=== PATIENT | male | born 1985 ===

== ENCOUNTER 2018-08-05 05:15 | Inpatient (IN) | payer OTHER ==
[2018-08-05] VITALS (8 sets, daily range): BP systolic 112–136; BP diastolic 69–89
[~2018-08-05] VITALS: Ht 180.3 cm; Wt 113.4 kg
[~2018-08-05 05:15] MED LIST: NKM
[2018-08-05] MEDS ORDERED: Dexamethasone 20mg/5ml ONE (05:47)
[2018-08-05] MEDS ORDERED: LORazepam 1mg tab ORAL PRN (06:00)
[2018-08-05] MEDS ORDERED: HYDROmorphone 1mg/ml Carpuject SUBQ PRN (06:00)
[2018-08-05] MEDS ORDERED: HYDROcodone/Acetamin 10/325 tab ORAL PRN (06:00)
[2018-08-05] MEDS ORDERED: Chloraseptic Spray 20mL Bottle ORAL PRN (06:00)
[2018-08-05] MEDS ORDERED: Hydromorphone 0.5mg/0.5ml inj IVP PRN ×2 (06:00→06:15)
[2018-08-05] MEDS ORDERED: LR 1000ml 1,000 ML IVLG SCH (06:11)
[2018-08-05] MEDS ORDERED: Meperidine 50mg/ml Inj(FOR RIGORS ONLY) IVP PRN (06:15)
[2018-08-05] MEDS ORDERED: fentaNYL 100 mcg/2 mL IV PRN (06:15)
[2018-08-05] MEDS ORDERED: Ketorolac 30mg Inj IV PRN ×2 (06:15)
[2018-08-05] MEDS ORDERED: Midazolam 2mg/2ml Inj IVP PRN (06:15)
[2018-08-05] MEDS ORDERED: HYDROcodone/Acetamin 5/325 tab ORAL PRN (06:15)
[2018-08-05] MEDS ORDERED: Labetalol 5mg/ml 20ml vial IV PRN (06:15)
[2018-08-05] MEDS ORDERED: Atropine Sulfate 0.4mg/ml inj IVP PRN (06:15)
[2018-08-05] MEDS ORDERED: Acetaminophen (Non formulary) 100 ML IV ONE (06:15)
[2018-08-05] MEDS ORDERED: HYDROcodone/Acetamin 7.5/325 tab ORAL PRN (06:15)
[2018-08-05] MEDS ORDERED: oxyCODONE HCL/Acetaminophen 5/325mg ORAL PRN (06:15)
[2018-08-05] MEDS ORDERED: LORazepam Inj 2mg/ml 1ml IV PRN (06:15)
[2018-08-05] MEDS ORDERED: DiphenhydrAMINE 50mg/ml Inj IVP PRN (06:15)
[2018-08-05] MEDS ORDERED: Zemuron 50mg/5ml Inj IV ONE (06:27)
[2018-08-05] MEDS ORDERED: Gelfoam Size TOPIC ONE (06:34)
[2018-08-05] MEDS ORDERED: Thrombin 5000 units TOPIC ONE (06:34)
[2018-08-05] MEDS ORDERED: Bacitracin 50000 Units Vial ONE (06:34)
[2018-08-05] MEDS ORDERED: Lidocaine 1% Plain 30 ml INJ ONE ×2 (06:55→08:35)
[2018-08-05] MEDS ORDERED: Sodium Chloride 10ml vial INJ ONE (06:55)
[2018-08-05] MEDS ORDERED: Dexamethasone 4mg/ml vial ONE (06:55)
[2018-08-05] MEDS ORDERED: Lidocaine 1% MPF 10mg/ml 5ml ONE (06:55)
--- NOTE | 2018-08-05 06:56 | Pre-Procedure Note/Attestation ---
Pre-Procedure Note/Attestation Complete Prior to Procedure Planned Procedure: not applicable Procedure Narrative: C5-C6, C6-C7 ACDF anterior plate, possible ADR Indications for Procedure Pre-Operative Diagnosis: Post trauma HNP radiculopathy Attestation I attest that I discussed the nature of the procedure; its benefits; risks and complications; and alternatives (and the risks and benefits of such alternatives ), prior to the procedure, with the patient (or the patient's legal insurance claims representative). I attest that, if there was a reasonable possibility of needing a blood transfusion, the patient (or the patient's legal insurance claims representative) was given the [facility] standardized written summary, pursuant to the [place] Blood Safety Act ([place] Health and Safety Code # 1645, as amended). I attest that I re-evaluated the patient just prior to the surgery and that there has been no change in the patient's H&P, except as documented below: Fuentes Mercedes MD Aug 05, 2018 06:56
[2018-08-05] MEDS ORDERED: Propofol 1,000mg/ 100ml btl IV ONE (07:00)
[2018-08-05] MEDS ORDERED: Dexamethasone 20mg/5ml IVP ONE (07:00)
[2018-08-05] MEDS ORDERED: ceFAZolin sod 1 GM in NS 55 ML IVPB ONE (07:00)
[2018-08-05] MEDS ORDERED: LR 1000ml ONE (07:00)
[2018-08-05] MEDS ORDERED: Sterile Water Irrig 1000ml IRRIG ONE (07:00)
[2018-08-05] MEDS ORDERED: NS Irrig 1000ml ONE (07:00)
[2018-08-05] MEDS ORDERED: Labetalol 5mg/ml 20ml vial IV ONE (07:00)
--- NOTE | 2018-08-05 07:09 | Anethesia Preoperative Eval ---
Anesthesia Pre-op PMH/ROS General Date of Evaluation: Aug 05, 2018 Time of Evaluation: 07:01 Anesthesiologist: Sharon ASA Score: ASA 2 Mallampati Score Class I : Soft palate, uvula, fauces, pillars visible Class II: Soft palate, uvula, fauces visible Class III: Soft palate, base of uvula visible Class IV: Only hard plate visible Mallampati Classification: Class II Surgeon: Mago Diagnosis: Neck Pain Surgical Procedure: ACDF C5-6, C6-7 Anesthesia History: none Family History: no anesthesia problems Allergies: Coded Allergies: No Known Allergies (Unverified , 08/04/18) Medications: see eMAR Patient NPO?: Yes NPO Date: Aug 04, 2018 NPO Time: 1800 Past Medical History Other: obesity - BMI 37 Anesthesia Pre-op Phys. Exam Physician Exam Last Vital Signs Date Time Temp Pulse Resp B/P (MAP) Pulse Ox O2 Delivery O2 Flow Rate FiO2 08/05/18 05:52 Room Air 08/05/18 05:50 97.2 65 18 130/69 (89) 99 Constitutional: NAD Neurologic: CN 2-12 intact Cardiovascular: RRR Respiratory: CTA Gastrointestinal: S/NT/ND Airway Exam Mallampati Score: Class II MO: full ROM: limited Teeth: intact Anesthesia Pre-op A/P Risk Assessment & Plan Assessment: ASA 2 Plan: GA, SED, GlideScope Go Status Change Before Surgery: No Pre-Antibiotics Dru Grams Ancef IV Given Within 1 Hr of Incision: Yes Time Given: 07:16 Baljinder Herrera MD Aug 05, 2018 07:09
[2018-08-05] MEDS ORDERED: fentaNYL 100 mcg/2 mL IV ONE ×2 (07:55→09:05)
--- NOTE | 2018-08-05 08:02 | Immediate Post-Op Evaluation ---
Immediate Post-Op Evalulation Immediate Post-Op Evalulation Procedure: ACDF C5-6, C6-7 Date of Evaluation: Aug 05, 2018 Time of Evaluation: 10:34 IV Fluids: 1000 LR Blood Products: 0 Estimated Blood Loss: 50 Urinary Output: 0 Blood Pressure Systolic: 121 Blood Pressure Diastolic: 78 Pulse Rate: 80 Respiratory Rate: 16 O2 Sat by Pulse Oximetry: 100 Temperature (Fahrenheit): 97.1 Pain Score (1-10): 2 Nausea: No Vomiting: No Complications 0 Patient Status: awake, reacts, patent, extubated, none Hydration Status: adequate Dru Grams Ancef IV Given Within 1 Hr of Incision: Yes Time Given: 07:16 Baljinder Herrera MD Aug 05, 2018 08:02
--- NOTE | 2018-08-05 08:04 | 48 Hour Post Anesthesia Eval ---
Post Anesthesia Evaluation Procedure: ACDF C5-6, C6-7 Date of Evaluation: Aug 05, 2018 Time of Evaluation: 13:34 Blood Pressure Systolic: 123 0: 77 Pulse Rate: 72 Respiratory Rate: 18 Temperature (Fahrenheit): 98.2 O2 Sat by Pulse Oximetry: 99 Airway: patent Nausea: No Vomiting: No Pain Intensity: 2 Cardiopulmonary Status: Stable Follow-up Care/Observations: 0 Post-Anesthesia Complications: 0 Follow-up care needed: ready to discharge Baljinder Herrera MD Aug 05, 2018 08:04
[2018-08-05] MEDS ORDERED: Naloxone 0.4mg/ml Inj ONE (09:29)
[2018-08-05] MEDS ORDERED: Neostigmine 1mg/ml 10ml Inj ONE (09:34)
[2018-08-05] MEDS ORDERED: Glycopyrrolate 0.2mg/ml 1ml Vial ONE (09:34)
[2018-08-05] MEDS ORDERED: D5 1/2NS 1,000 ML IV SCH (10:32)
--- NOTE | 2018-08-05 10:32 | Brief Operative Note ---
Immediate Post Operative Note Operative Note Pre-op Diagnosis: Post trauma HNP radiculopathy Procedure: ACDF C5-C6, C6, C7 Plate C5-C7 Microscope Xray SSEP Body Habitus Post-op Diagnosis: same as pre-op Findings: consistent w/pre-op dx studies Surgeon: Mago SULLIVAN Additional Surgeons: Shelby SULLIVAN Anesthesiologist: Sharon SULLIVAN Anesthesia: general Specimen: yes Complications: none Condition: stable Fluids: anesthesia Estimated Blood Loss: volume Drains: none Implant(s) used?: Yes Fuentes Mercedes MD Aug 05, 2018 10:32
[2018-08-05] MEDS ORDERED: Naloxone 0.4mg/ml Inj IVP PRN (10:45)
--- NOTE | 2018-08-05 11:55 | NUR ---
NURSE NOTES: Received patient from Xuan RN, patient stable condition with out no distress, denies pain, neuro check stable, surgical site with out bleeding intact, with ice pack, family at bedside will continue to monitor.
[2018-08-05] MEDS ORDERED: ceFAZolin sod 1 GM in D5W 55 ML IV SCH (15:00)
--- NOTE | 2018-08-05 16:00 | NUR ---
NURSE NOTES: Patient able to void large pale yellow urine, denies pain, able to ambulated in the unit with out no difficulties. neuro check stable will continue to monitor.
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
--- NOTE | 2018-08-05 17:30 | Operative Note - Dictated ---
DATE OF OPERATION: 08/05/2018 SURGEON: Fuentes Mercedes, , PhD, M.D. ADDITIONAL SURGEON: Raymundo Ryan MD. ANESTHESIOLOGIST: Baljinder Herrera M.D. ANESTHESIA: General with intubation. 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 OPERATIVE PROCEDURE: 1. Anterior cervical diskectomy with fusion C5-C6, C6-C7. 2. Placement of bioactive material C5-C6, C6-C7. 3. Placement of titanium interbody grafts C5-C6, C6-C7. 4. Anterior internal plate fixation . The patient's body habitus greater than 95th percentile for height. 5. SSEP monitoring. 6. High-powered microscopic dissection. 7. Intraoperative fluoroscopy interpreted by surgeons. COMPLICATIONS: None. POSTOP CONDITION: Good/stable. ESTIMATED BLOOD LOSS: Less than 50 mL. SPECIMEN: Disc fragments to pathology. DESCRIPTION OF PROCEDURE: The patient was brought to the operating room and in the supine position, general anesthesia with intubation was induced. IV antibiotics, IV Decadron were administered 30 minutes prior to incision time. After appropriate positioning in the supine position, a spinal needle was taped to the right lateral aspect of the neck (within the sheath of the needle without penetration of the skin) and a cross-table image was obtained interpreted by surgeons demonstrating the correct level for incision placement. Level was marked on the left side-contralateral side from the needle of the neck. Needle marker was removed. Anterior cervical spine was sterilely prepped and draped free in usual sterile fashion. A longitudinal incision left was utilized due to the patient's body habitus, diameter of the neck and shortness of his neck. Sharp dissection was carried appropriately medial to the sternocleidomastoid muscle through dermis and epidermis. Electrocautery dissection was carried through the subcutaneous tissue to the level of the platysmas muscle that was identified, isolated, and transected in line with the incision. Venous bleeding in the interval was coagulated with bipolar electrocauterization and surgical clip utilization. Dissection was carried medial to the carotid sheath and left sternocleidomastoid muscle bluntly through the deep cervical and pretracheal fascia to the midline between the right and left longus colli muscles. Disk space identified. Spinal needle bent at 90 degree angle so as to avoid penetration at this space greater than 3 mm was placed. Under direct observation, a cross-table image and AP radiographs were obtained demonstrating midline and correct level for further dissection. Annulotomy was performed. Needle removed. Annulotomy was utilized for marking the disc space prior to needle removal. SSEP monitoring remained stable throughout the case. Annulotomy C6-C7 was followed with diskectomy to the posterior longitudinal ligament. High-speed Midas Brayan bur dissection was utilized. Graft trial placed with identification of the correct depth and medial lateral dimensions as well as caudad and cephalad dimensions and lordosis. Titanium graft was utilized packed with bio-4 bioactive material, tamped into position with the introducer possessing a stop so as to avoid penetration of the graft placement posterior to the anterior cortical line of the vertebral body. Lateral radiograph obtained demonstrating excellent positioning . Excellent positioning under direct high-power magnification. Introducer was removed. Wound was irrigated with antibiotic-containing saline. Attention was turned to the C5-C6 interval with the placement of the retractor blades beneath the subperiosteal elevated longus colli muscles not elevated greater than 3 mm in medial lateral extent. Annulotomy was followed under high-power magnification with diskectomy to the posterior longitudinal ligament denuding of endplates. Graft size determination as noted at the C6-C7 level was separately performed at C5-C6. Appropriate titanium graft was utilized. Graft containing bioactive material. Graft introduced with the introducer as described previously into the C5-C6 interval. Cross-table imaging demonstrated excellent positioning. Direct observation under high-power revealing excellent alignment from the anterior aspect. The joint of Luschka was not violated either right or left at either level. No gross bleeding into the disk space. Traction on the neck 10 pounds was removed. Anterior internal plate fixation in a compressive fashion was undertaken with 17 mm screws divergent bilateral C5 and bilateral C7 locked into position. AP lateral images were obtained and recorded demonstrating excellent alignment in both AP and lateral planes and the correct intervals. Wound was irrigated with antibiotic-containing saline. Exploration revealed no obvious excoriation or laceration of vital structures. SSEP monitoring stable. FloSeal applied after copious irrigation. Sequential reapproximation of the platysmas muscle, subcutaneous tissue with transverse surgical strips and sterile bandage placed and maintained in place with tape. The patient was awakened, extubated in the operating room, and transported to postop recovery in good stable condition. Fuentes Mercedes M.D. DR: Chance JOB#: [id number] CC:
--- NOTE | 2018-08-05 18:30 | NUR ---
NURSE NOTES: Patient discharged from the unit with significant other, patient belongings brought by family and given, patient reported he has a pre refilled pain medication at home denies pain. Spine activity protocol given and discussed with patient. and patient instructed to get clearance by MD before started to drive and shower. Patient reported had a follow up appointment with Dr. Mercedes. discharge instruction given for significant other and patient.
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
== END 2018-08-05 18:49 | disposition home or self-care (01) | DRG 473 ==
LOC: SUR 05:15 → 3E 13:21
PROC: 0RG20A0 Fusion of 2 or more Cervical Vertebral Joints with Interbody Fusion Device, Anterior Approach, Anterior Column, Open Approach (ICD-10-PCS; principal; 2018-08-05 07:00)
PROC: 0RB30ZZ Excision of Cervical Vertebral Disc, Open Approach (ICD-10-PCS; principal; 2018-08-05 07:00)
DX: M50.123 Cervical disc disorder at C6-C7 level with radiculopathy (principal); E66.9 Obesity, unspecified; Z68.37 Body mass index [BMI] 37.0-37.9, adult; V89.2XXS Person injured in unspecified motor-vehicle accident, traffic, sequela
CPT/HCPCS: 36415; 72040; 76000; 86850; 86900; 86901; 87081; J2405; J2710